=== PATIENT | male | born 1945 | race Caucasian/White ===

== ENCOUNTER 2018-01-25 09:25 | Day surgery (SDC) | payer MEDICARE, BC ==
[2018-01-25] MEDS: NS 1,000 ML IV (10:23)
[2018-01-25] MEDS ORDERED: LIDOCAINE 2% INJ 100 MG/5 ML SYRINGE As Ordered (10:43)
[2018-01-25] MEDS ORDERED: PROPOFOL 200 MG/20 ML VIAL As Ordered (10:43)
[2018-01-25] MEDS ORDERED: fentaNYL 100 MCG/2 ML INJECTION (J3010) As Ordered (10:43)
== END 2018-01-25 11:41 | disposition home or self-care (01) ==
LOC: M OPP 09:25
DX: K22.2 Esophageal obstruction (principal); I10 Essential (primary) hypertension; K21.9 Gastro-esophageal reflux disease without esophagitis; M12.9 Arthropathy, unspecified; F32.9 Major depressive disorder, single episode, unspecified; Z79.899 Other long term (current) drug therapy; Z88.8 Allergy status to other drugs, medicaments and biological substances; Z80.0 Family history of malignant neoplasm of digestive organs; Z83.1 Family history of other infectious and parasitic diseases
CPT/HCPCS: 43249

== ENCOUNTER → 2019-07-23 | Outpatient (REF) ==
[~2019-07-23] MED LIST: CARB100T; CENT1TAB20 PO; LANS15CA; LOSA50TA88
== END ==
LOC: M LAB LCGH 14:59
PROVIDERS: ATTEND Physician Assistant
DX: C44.81 Basal cell carcinoma of overlapping sites of skin (principal)

== ENCOUNTER → 2020-03-11 | Outpatient (REF) | payer MEDICARE, BC | LOC: M LAB REF 10:16 | PROVIDERS: ATTEND Dermatology | DX: C44.311 Basal cell carcinoma of skin of nose (principal) ==